=== PATIENT | female | born 1980 | race Two or more races ===

== ENCOUNTER 2020-09-12 12:47 | Day surgery (SDC) | payer BC, MEDICAID ==
[2020-09-12] VITALS (14 sets, daily range): BP systolic 127–200; BP diastolic 76–124
[~2020-09-12] VITALS: Ht 165.1 cm; Wt 152.6 kg
[~2020-09-12 12:47] MED LIST: CITA40TA17 PO; HYDROCODONE-ACETAMIN PO; ONDA-103 PO; ceFOXitin 2GM-NS 100mL ADDvant 100 ML IV ONE; famotidine 20mg tablet PO ONE
[2020-09-12] MEDS: INDOCYANINE GREEN 25 MG/10 ML VIAL IV ONE ×2 (13:45→16:22)
[2020-09-12 13:57] LABS: BASOPHILS # (AUTO) 0.1 X10'3 (0-0.2); BASOPHILS % (AUTO) 1.2 % (0-1); EOSINOPHILS # (AUTO) 0.1 X10'3 (0-0.9); LYMPHOCYTES # (AUTO) 2.4 X10'3 (1.1-4.8); LYMPHOCYTES % (AUTO) 23.1 % (21-51); MEAN CORPUSCULAR HEMOGLOBIN 22.7 PG (27.0-31.0); MEAN CORPUSCULAR HGB CONC 31.6 g/dL (33.0-36.5); MEAN CORPUSCULAR VOLUME 71.8 FL (78-98); MEAN PLATELET VOLUME 7.4 FL (7.4-10.4); MONOCYTES # (AUTO) 0.6 X10'3 (0-0.9); MONOCYTES % (AUTO) 6.2 % (2-12); NEUTROPHILS # (AUTO) 7.1 X10'3 (1.8-7.7); NEUTROPHILS % (AUTO) 68.5 % (42-75); PRE OP HEMATOCRIT 37.3 % (35.0-45.0); PRE OP HEMOGLOBIN 11.8 g/dL (12.0-16.0); PRE OP PLATELET COUNT 338 X10'3 (140-440); RED BLOOD COUNT 5.19 X10'6 (4.20-5.60); RED CELL DISTRIBUTION WIDTH 16.6 % (11.5-14.5)
[2020-09-12 14:11] LABS: ALBUMIN 3.4 G/DL (3.4-5.0); ALBUMIN/GLOBULIN RATIO 0.8 (1.1-1.5); ALKALINE PHOSPHATASE 91 IU/L (46-116); BLOOD UREA NITROGEN 13 MG/DL (7-18); BUN/CREATININE RATIO 15.5 (6.6-38.0); CHLORIDE 105 MMOL/L (99-107); CREATININE 0.84 MG/DL (0.40-0.90); PRE OP ALT 26 U/L (30-65); PRE OP ANION GAP 9 (8-16); PRE OP AST 16 U/L (10-37); PRE OP BILIRUB, TOTAL 0.4 MG/DL (0.0-1.0); PRE OP GLUCOSE 90 MG/DL (70-104); PRE OP POTASSIUM 3.9 MMOL/L (3.4-5.1); PRE OP SODIUM 140 MMOL/L (135-145); TOTAL CARBON DIOXIDE 26.1 MMOL/L (24-32); TOTAL PROTEIN 7.7 G/DL (6.4-8.2); eGFR 76 ML/MIN
[2020-09-12 14:19] LABS: HCG SERUM QL NEGATIVE
[2020-09-12] MEDS ORDERED: sevoflurane 250ml liquid IH ONE (17:15)
[2020-09-12] MEDS ORDERED: ketorolac trometh. 30mg/ml inj. ONE (17:15)
[2020-09-12] MEDS ORDERED: acetaminophen 1000 MG/100ml vial IV ONE (17:15)
[2020-09-12] MEDS ORDERED: midazolam 2 mg/2 ml injection ONE (17:23)
[2020-09-12] MEDS ORDERED: fentaNYL /PF 50mcg/ml 5ml ampule ONE (17:23)
[2020-09-12] MEDS ORDERED: LIDOcaine 2% 5ml jelly ONE (17:26)
[2020-09-12] MEDS ORDERED: BUPIVAcaine/PF 2.5 mg/ml (0.25%) 30ml vial ONE (17:26)
[2020-09-12] MEDS ORDERED: dexamethasone sod phosphate 4mg/ml inj. ONE (17:54)
[2020-09-12] MEDS ORDERED: LIDOcaine 2% (20mg/ml) 5ml vial ONE (17:54)
[2020-09-12] MEDS ORDERED: rocuronium 10mg/ml inj IV ONE ×2 (17:54→17:59)
[2020-09-12] MEDS ORDERED: propofol inj 20 ML IV ONE (17:54)
[2020-09-12] MEDS ORDERED: ondansetron/PF 4mg/2ml inj ONE (17:54)
[2020-09-12] MEDS ORDERED: proCHLORperazine 10 MG/2 ml inj IV PRN (18:10)
[2020-09-12] MEDS ORDERED: ondansetron/PF 4mg/2ml inj IV PRN (18:10)
[2020-09-12] MEDS ORDERED: fentaNYL/PF 50MCG/1 ML 2ML syringe IV PRN ×2 (18:10)
[2020-09-12] MEDS ORDERED: ringers solution, lacted 1,000 ML IV SCH (18:10)
[2020-09-12] MEDS ORDERED: labetalol 20mg/4ml (5mg/ml) syringe IV PRN (18:10)
[2020-09-12] MEDS ORDERED: HYDROmorphone/PF 0.2 MG/ML SYRINGE IV PRN ×2 (18:10)
[2020-09-12] MEDS ORDERED: hydrALAZINE 20mg/ml inj. IV PRN (18:10)
[2020-09-12] MEDS ORDERED: acetaminophen 1,000mg/100ml IV 100 ML IV PRN (18:10)
[2020-09-12] MEDS ORDERED: meperidine/PF 25mg/ml syringe IV PRN (18:10)
[2020-09-12] MEDS ORDERED: sugammadex 200mg/2ml injection IV ONE (19:22)
[2020-09-12] MEDS ORDERED: Potassium Cl inj 20 MEQ in ringers solution, lacted 1,000 ML IV SCH (19:35)
[2020-09-12] MEDS ORDERED: naloxone 0.4 mg/ml inj IV PRN (19:35)
[2020-09-12] MEDS ORDERED: CADD PCA waste documentation MC PRN (19:35)
[2020-09-12] MEDS ORDERED: meperidine/PF 50mg/ml syringe ONE (19:42)
--- NOTE | 2020-09-12 19:47 | NUR ---
Received from OR via SURGICAL , accompanied by Anesthesiologist HELGA and report given by Anesthesiolgist. PATIENT CAME OUT IN PAIN. MEDICATED UPON ARRIVAL. VSS ELEVATED. 3 ABDOMINAL LAP SITES PRESENT. NO DRAINAGE PRESENT. ON 10L MASK WITH 95% SATURATIONS. Addendum: 09/12/20 at 1951 by Mitul Mae RN, RN Amended: Links added.
[2020-09-12] MEDS: HYDROmorphone/NS 1 mg/ml CADD 50 ML IV SCH ×2 (20:06→23:00)
[2020-09-12] MEDS: ringers solution, lacted 1,000 ML IV SCH (20:30)
--- NOTE | 2020-09-12 20:47 | NUR ---
ALL CRITERIA FOR TRANSFER TO THE FLOOR HAS BEEN ACHIEVED. REPORT GIVEN AND ALL QUESTIONS ANSWERED, VSS. BED LOW 2 RAILS UP, CALL LIGHT PRESENT AND PATIENT HOOKED UP TO ALL LINES AND VSS. PATIENTS RN PRESENT TO ACCEPT CARE. HUMAIRA CABA TOOK REPORT AND GAVE A VERBAL TO KIMBERLEE GERARDO . PATIENT SET UP IN ROOM ASSESSMENT EXPERT SETTING UP VS. ONE BAG OF PERSONAL BELONGINGS PLACED IN 345A WELL HER CELL PHONE. PATIENT COMFORTABLE WITH CADD PUMP AND PAIN IS CONTROLLED AT THIS TIME. DRESSINGS X3 TO ABDOMEN ARE ALL CDI. 3LPM O2 WITH 98% SATURATIONS. Addendum: 09/12/20 at 2049 by Mitul Dawson - HUMAIRA RN Amended: Links added.
[2020-09-13] VITALS: BP 139/88
[2020-09-13 00:15] VITALS: BP 126/62
[2020-09-13] MEDS: HYDROmorphone/NS 1 mg/ml CADD 50 ML IV SCH ×7 (01:00→13:00)
[2020-09-13 04:30] VITALS: BP 122/80
--- NOTE | 2020-09-13 06:46 | NUR ---
Patient in room [facility]. I have received report from Pat RN and had the opportunity to ask questions and assume patient care.
[2020-09-13 06:55] LABS: BASOPHILS # (AUTO) 0.1 X10'3 (0-0.2); BASOPHILS % (AUTO) 0.6 % (0-1); EOSINOPHILS % (AUTO) 0 % (0-6); HEMOGLOBIN 10.8 g/dl (12.0-16.0); LYMPHOCYTES # (AUTO) 0.8 X10'3 (1.1-4.8); LYMPHOCYTES % (AUTO) 6.4 % (21-51); MEAN CORPUSCULAR HEMOGLOBIN 22.7 PG (27.0-31.0); MEAN CORPUSCULAR HGB CONC 31.8 g/dL (33.0-36.5); MEAN CORPUSCULAR VOLUME 71.1 FL (78-98); MEAN PLATELET VOLUME 7.6 FL (7.4-10.4); MONOCYTES # (AUTO) 0.3 X10'3 (0-0.9); NEUTROPHILS # (AUTO) 11.4 X10'3 (1.8-7.7); PLATELET COUNT 348 X10'3 (140-440); RED BLOOD COUNT 4.78 X10'6 (4.20-5.60); RED CELL DISTRIBUTION WIDTH 16.7 % (11.5-14.5); WHITE BLOOD COUNT 12.5 X10'3 (4.5-11.0)
[2020-09-13 07:00] VITALS: BP 123/63
[2020-09-13] MEDS: ringers solution, lacted 1,000 ML IV SCH (07:12)
[2020-09-13 07:38] LABS: ALANINE AMINOTRANSFERASE 45 U/L (12-78); ALBUMIN 3.2 G/DL (3.4-5.0); ALBUMIN/GLOBULIN RATIO 0.7 (1.1-1.5); ALKALINE PHOSPHATASE 85 IU/L (46-116); ANION GAP 12 (8-16); ASPARTATE AMINO TRANSFERASE 37 U/L (10-37); BILIRUBIN,TOTAL 0.4 MG/DL (0.1-1.0); BLOOD UREA NITROGEN 17 MG/DL (7-18); BUN/CREATININE RATIO 18.3 (6.6-38.0); CALCIUM 8.8 MG/DL (8.5-10.1); CHLORIDE 102 MMOL/L (99-107); CREATININE 0.93 MG/DL (0.40-0.90); GLUCOSE 147 MG/DL (70-104); POTASSIUM 4.4 MMOL/L (3.5-5.1); SODIUM 136 MMOL/L (135-145); TOTAL PROTEIN 7.5 G/DL (6.4-8.2); eGFR 67 ML/MIN
[2020-09-13] MEDS ORDERED: ondansetron 4mg rapidly disintigrating tab PO PRN (08:10)
[2020-09-13] MEDS ORDERED: HYDROcodone/acetaminophen 10/325mg tab PO PRN (08:10)
[2020-09-13] MEDS ORDERED: citalopram 20mg tablet PO SCH (08:30)
[2020-09-13 11:00] VITALS: BP 117/69
[2020-09-13 11:58] VITALS: BP 117/69
--- NOTE | 2020-09-13 14:01 | NUR ---
Dr Ponce rounded and instructed pt she is stable for discharge. IV is to be DC'd, and pt is to be assessed on RA O2. MD's office to call in Percocet 10mg q6h prn pain #20 to pt's pharmacy. Pt's SO is at bedside. stated pt may shower, no baths x1 week. Wilfredo RN, aware.
--- NOTE | 2020-09-13 14:07 | NUR ---
Saloni at Dr Ponce' office notified of order for Percocet 10 1 po q6h prn pain #20 to be called in to pt's pharmacy.
== END 2020-09-13 14:45 | disposition home or self-care (01) ==
LOC: PAS 12:47 → SUR 3N 19:39 → UNDOADMIN 20:40 → SUR 3N 09-13 10:02 → PAS 09-13 14:45
PROVIDERS: ATTEND Surgery
DX: K80.12 Calculus of gallbladder with acute and chronic cholecystitis without obstruction (principal); F41.9 Anxiety disorder, unspecified; E66.01 Morbid (severe) obesity due to excess calories; Z68.43 Body mass index [BMI] 50.0-59.9, adult; Z79.899 Other long term (current) drug therapy; Z98.890 Other specified postprocedural states; Z87.891 Personal history of nicotine dependence; Z88.8 Allergy status to other drugs, medicaments and biological substances
CPT/HCPCS: 36415; 47562; 80053; 84703; 85025; 93005; C9399; J0131; J0694; J1100; J1170; J1885; J2001; J2175; J2250; J2405; J2704; J3010; J3490; J7120; S2900; A4215; A4618; A7000; G0378